=== PATIENT | female | born 1990 | race Caucasian/White ===

== ENCOUNTER 2016-12-18 20:48 | Emergency (ER) | payer OTHER ==
[~2016-12-18] VITALS: Ht 165.1 cm; Wt 78.0 kg
[~2016-12-18 20:48] MED LIST: IBUPROFEN800 MG PO; LOESTRIN 1/21 TABLET PO; NOHOMEMEDS; PERCOCET 5/31 TABLET PO; PRENA1 CHEW TA1.4 MG PO; PROBIOTIC1 EAC1 PO; TORADOL10 MG PO; VALIUM5 MG PO
[2016-12-19 00:30] VITALS: BP 111/71
== END 2016-12-19 00:31 | disposition home or self-care (01) ==
LOC: EME 20:48
DX: M62.838 Other muscle spasm (principal)
CPT/HCPCS: 72040; 99281; 99285; J1885; J8540

== ENCOUNTER 2017-05-07 17:29 | Emergency (ER) | payer OTHER ==
[~2017-05-07] VITALS: Ht 162.6 cm; Wt 88.0 kg
[2017-05-07] MEDS ORDERED: VALIUM5 MG PO (20:08)
[2017-05-07 20:34] VITALS: BP 115/79
== END 2017-05-07 20:36 | disposition home or self-care (01) ==
LOC: EME 17:29
DX: M54.12 Radiculopathy, cervical region (principal); M62.838 Other muscle spasm; V89.2XXD Person injured in unspecified motor-vehicle accident, traffic, subsequent encounter
CPT/HCPCS: 99281; 99283